=== PATIENT | female | born 1985 | race Caucasian/White ===

== ENCOUNTER 2020-11-03 13:03 | Outpatient (CLI) | payer OTHER ==
[2020-11-03 13:48] VITALS: BP 102/65
--- NOTE | 2020-11-03 13:48 | SLEEP CARE CONSULTATION ---
Information from patient questionnaire entered by Francisco Javier Flores. I have reviewed and concur with the information entered by Francisco Javier Flores. This document represents the service I personally performed and the decisions made by me, Karolyn Haney ARNP. History of Present Illness Service Date and Time: 11/03/2020 1303 Reason for Visit: New patient Chief Complaint: reports: Unrefreshed sleep, Snoring, Excessive daytime sleepiness, Fatigue, Frequent awakenings at night. denies: Insomnia, Observed pauses in breathing Date of Onset: Many years Usual bedtime: 0810-9865 Time it takes to fall asleep: A few minutes Snores at night: Yes Observed to quit breathing while asleep: No Number of times waking at night: 3-5 that I know of Reasons for waking at night: reports: Snoring, Bathroom, Other (To turn over, dreams). denies: Choking, Gasping for air Toss, Turn, or Twitch while sleeping: Yes (sometimes) Recalls having dreams: Yes Usually gets out of bed at: 3129-3982 Feels refreshed in the morning: No Morning headache: No Sleepy or fatigued during the day: Yes Ever fallen asleep while driving: Yes ([place] years ago) Takes day naps: No (rarely) Prior sleep studies: No Additional HPI information: I had the pleasure of seeing ASTON KIM today regarding the possibility of her having a sleep disorder. Her current complaints are snoring, unrefreshed sleep, frequent night, excessive daytime sleepiness, awakenings at night and fatigue. She was referred by her PCP after she discussed with them her issue of no being able to breathe through her nose and feeling chronic fatigued. She states she frequently wakes up through the night and does not wake up feeling rested. Her parents and siblings snore but no one has been evaluated/diagnosed with sleep apnea. - Parasomnia Symptoms Ever been unable to move upon waking from sleep: No Walks in sleep: No Talks in sleep: Yes (once) Ever acted out dreams in sleep: No Ever felt weak in the knees when startled or emotional: Yes Bothered by creepy, crawly, restless sensations in legs: Yes (not frequent, when in bed) Problems with memory or concentration: Yes Subjective Initial [place] Sleepiness Scale score: 12 (in 2019) Past Medical History Past Medical History: reports: Other ("Seasonal allergies"). 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 Patient is Single and lives in [place]. Have you smoked in the past 12 months: No Alcohol use: No Alcohol amount and frequency: Previously - socially Caffeine use: Yes Caffeine amount and frequency: 1-2 cups a day Family History Family history of sleep disordered breathing: Yes (Brother, both parents) Family Hx Sleep Apnea: Mother: Snoring, Father: Snoring, Sibling: Snoring Allergies and Home Medications Drug allergies reviewed: Yes (NKDA) Home medication list reviewed: Yes Allergy and home medication list: Flonase Cetirizine MVT hydroxycut drink Review of Systems Weight gain over past 5 years: 30 - fluctuates Cardiovascular: denies: high blood pressure Respiratory: denies: shortness of breath Gastrointestinal: denies: heartburn, difficulty swallowing Neurological: denies: headaches, head trauma Psychiatric: denies: anxiety, depression Ear/Nose/Throat: reports: nasal congestion, sinus problems (constant runny nose), wisdom teeth removed. denies: nose bleeds, dry mouth/throat, tonsillectomy Endocrine: reports: sluggishness (tired) Musculoskeletal: reports: back pain Immunologic: reports: sneezing (runny nose), itching, allergies to food or environment (grass, pollen, animal dander) Physical Exam Blood Pressure: 102/65 Cuff size: wrist Heart Rate: 74 O2 Saturation: 99 Height: 5 ft 10 in Weight: 189 lb Body Mass Index: 27.1 BMI Classification: Overweight Neck circumference: 14.1 (inches) Nostrils: patent to airflow Turbinates: swollen Mouth and throat: normal Hard palate: arched Uvula visualization: 100% Mallampati Class I Tongue: normal in size Tonsils: 2+ Chin and jaw: normal size and position Neck: normal w/o lymphadenopathy or thyromegaly Heart: regular rate and rhythm Lungs: clear bilaterally Impression and Plan 1. Suspected Obstructive Sleep Apnea-Hypopnea Syndrome, as suggested by a history of loud and irregular snoring, frequent awakening during the night, unrefreshed sleep, cognitive impairment, and excessive daytime sleepiness. I reviewed with patient that a narrow oropharynx and obesity are common predisposing factors for obstructive sleep apnea-hypopnea syndrome. I recommend proceeding to polysomnography to confirm the diagnosis and to assess severity. If the patient has significant sleep disordered breathing, a manual CPAP titration study will also be performed to find the optimal treatment pressure. I informed the patient of what the sleep studies involve and after some discussion, obtained agreement to proceed. The pathophysiology of obstructive sleep apnea-hypopnea syndrome was discussed with the patient and health risks of cardiovascular and cerebrovascular disease if not treated. AAS brochure for obstructive sleep apnea-hypopnea syndrome given and reviewed. Risks of drowsy driving discussed in detail and patient advised to avoid long distance driving and to kiln puller at the first sign of drowsiness. Patient agreed to plan. * Schedule polysomnography +- manual CPAP titration study. * Avoid long distance driving or driving when feeling sleepy. * Avoid sedative and muscle relaxant around bedtime. * Attempt to lose weight. * Review instructions provided by trained office staff on how to prepare for the sleep study. * Return for follow-up after sleep study completed. Counseling Topics: Weight loss health impact Visit Type: In Office Time Spent with Patient (minutes): 30 Provider Statement: I spent 100% of the Face to Face Visit with the patient with greater than 50% spent counseling the patient and coordination of care.
== END 2020-11-03 13:04 | disposition home or self-care (01) ==
LOC: SC 13:03
PROVIDERS: ATTEND Nurse Practitioner Family
DX: R06.83 Snoring (principal); G47.8 Other sleep disorders; R41.89 Other symptoms and signs involving cognitive functions and awareness; G47.10 Hypersomnia, unspecified; E66.3 Overweight; Z68.27 Body mass index [BMI] 27.0-27.9, adult
CPT/HCPCS: 99203; 99212

== ENCOUNTER 2020-12-15 07:51 | Outpatient (CLI) | payer OTHER | END 2020-12-15 07:52 | disposition home or self-care (01) | LOC: SC 07:51 | PROVIDERS: ATTEND Nurse Practitioner Family | DX: R06.83 Snoring (principal); G47.10 Hypersomnia, unspecified; G47.8 Other sleep disorders | CPT/HCPCS: 95806 ==

== ENCOUNTER 2020-12-22 13:57 | Outpatient (CLI) | payer OTHER ==
--- NOTE | 2020-12-22 13:52 | SLEEP CARE CONSULTATION ---
Information from patient questionnaire entered by Aditi Carrion. I have reviewed and concur with the information entered by Aditi Carrion. This document represents the service I personally performed and the decisions made by , Karolyn Haney ARNP. History of Present Illness Service Date and Time: 12/22/2020 1340 Initial [place] Sleepiness Scale score: 12 (in 2019) Additional HPI information: JEANETTE KIM returns via Telehealth visit for follow up and results of the recently performed home sleep study. The patient was informed of the following findings: patient had no significant sleep disordered breathing with an average AHI of 1.1 and a giovany oxygen saturation of 89%. I explained the pathophysiology behind obstructive sleep apnea. Patient does not have sleep apnea and was advised how weight gain could increase the risk of developing sleep apnea in the future. Patient has moderate snoring. Snoring can be reduced by weight loss. Weight loss is best achieved with diet consult. Patient instructed to contact PCP for referral. Snoring can also be treated with an oral appliance from a dentist. Advised to check insurance coverage. In addition, an ENT evaluation can be do to see if other treatment is indicated. Patient counseled not drink alcohol less than 4 hours before bedtime as it can increase snoring and apnea. Patient was cautioned about risks of drowsy driving until sleepiness symptoms resolve. Sleep Study - Results Type of Sleep Study: Home sleep study Prior sleep studies: No Polysomnography/Home Sleep Study results: Physician Impression: The quality of the study is good. The length of the study is adequate (> 240 minutes). Please also see the tabulated and graphic data. 1. No significant sleep-disordered breathing, with an AHI of 1.1/hr and giovany SaO2 of 89%. During the study, the patient had 8 apneas (8 obstructive, 0 central, 0 mixed) and 1 hypopnea. The longest episode lasted 23.5 seconds. The respiratory events occurred more frequently during supine sleep (supine AHI was 1.9 and non-supine, 0.69). 2. Hypoxemia (ICD-10 R09.02), minimal, with the lowest oxygen saturation of 89 % and 0.2 minutes with SaO2 under 90%. Baseline oxygen saturation was normal (Average oxygen saturation was 96%). Allergies and Home Medications Home medication list reviewed: Yes (no changes) Review of Systems Review of systems same as previous: Yes (no changes) Physical Exam Vital signs obtained and entered by: Telehealth visit to reduce exposure during covid pandemic Height: 5 ft 10 in Impression and Plan Snoring but no significant sleep disordered breathing. Patient advised that often weight loss will reduce snoring as well as apnea risk. An oral appliance can also be used for snoring. This would require a dental consultation. Patient cautioned not to use other online appliances as can cause bite issues. A list of accredited dentists in area and one local dentist who makes oral appliances given. Patient is advised to check if insurance will cover. An ENT consult can also be helpful to determine if any other treatment is an option. 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 She was advised that she would have to get another referral when she comes back from deployment and we can evaluate if she needs an in lab PSG at that time. She voiced understanding. * Patient to follow up when she returns from deployment for possible in lab study. * Avoid alcohol consumption near bedtime * The patient is cautioned about driving until sleepiness is completely resolved. * Return as needed. Visit Type: Telehealth Video Video Type: VSee Patient Location: Home Location of Provider: Office Patient agrees and consents to this telehealth visit type: Yes Patient agrees to have their insurance billed: Yes Time Spent with Patient (minutes): 15 Provider Statement: I spent 100% of the Telehealth Video Call with the patient with greater than 50% spent counseling the patient and coordination of care.
== END 2020-12-22 13:58 | disposition home or self-care (01) ==
LOC: SC 13:57
PROVIDERS: ATTEND Nurse Practitioner Family
DX: R06.83 Snoring (principal)

== ENCOUNTER 2024-02-18 10:01 | Outpatient (CLI) | payer OTHER ==
--- NOTE | 2024-02-18 12:06 | MRI Report ---
PROCEDURE: Hip RT WO INDICATIONS: R HIP PAIN TECHNIQUE: Noncontrast coronal T1 spin echo and STIR through the bony pelvis. Coronal and axial T2 fast spin ec ho with fat saturation, sagittal T1 spin echo, and oblique axial T2 fast spin echo with fat saturatio n through the hip. COMPARISON: None. FINDINGS: Image quality: Excellent. Bones and joints: Mild to moderate bilateral hip joint osteoarthritic changes are seen with superior joint space narrowing, subchondral sclerosis and small marginal osteophyte formation slightly worse o n the right side. Nonspecific subcortical cystic changes are noted in anterior right acetabular roof is seen. No acute fracture or dislocation. No avascular necrosis of the femoral heads. The visualize d lower lumbar spine appears normally aligned. Tendons: Distal right gluteus medius and minimus tendinosis at their insertions on greater trochanter is seen. The iliopsoas tendon appears intact, without adjacent bursal fluid collections. The origin of the hamstring tendon is intact at the ischial tuberosity. Labrum and cartilage: Mildly thinning of articulating cartilage over right femoral head is seen. Fray ing of superior anterior labrum with T2 hyperintense signal at 1 to 2:00 position is seen suggestive of superior anterior labral tear. The alpha angle of the femur is within normal limits at less than 5 5 degrees. Soft tissues: Visualized muscles demonstrate normal bulk and internal signal. The proximal sciatic neurovascular bundle appears normal adjacent to the hamstring tendons. No free pelvic fluid. Bladde r wall thickness is normal. Genitourinary structures and bowel loops appear normal where visualized. IMPRESSION: 1. Mild to moderate lateral hip joint osteoarthritis slightly worse on the right side. No fracture or dislocation. No evidence of avascular necrosis. Subcortical cystic changes involving anterior right acetabular roof. 2. Right distal gluteus medius and minimus tendinosis. 3. Suggestion of subtle superior anterior right hip labral tear at 1 to 2:00 position. Reviewed by: Preston Mayorga MD on 02/18/2024 12:04 PM PDT Approved by: Preston Mayorga MD on 02/18/2024 12:04 PM PDT Station ID: [id number]
== END 2024-02-18 10:02 | disposition home or self-care (01) ==
LOC: DI 10:01
PROVIDERS: ATTEND Nurse Practitioner Family
DX: M16.0 Bilateral primary osteoarthritis of hip (principal); M67.951 Unspecified disorder of synovium and tendon, right thigh

== ENCOUNTER 2024-04-15 08:40 | Outpatient (CLI) | payer OTHER ==
--- NOTE | 2024-04-15 09:06 | Sleep Patient Instructions ---
Sleep Center Visit Summary - Patient Visit Information Reason for Visit: Initial consult for evaluation of sleep disordered breathing and other sleep issues. - Patient Instructions Additional Instructions: You will be completing a sleep study, either an in-lab polysomnography (PSG) or home sleep study (HST). You will follow-up in the sleep care office after the sleep study is completed to hear the results and talk about therapy, if needed. You will be called by our office staff to schedule this appointment, but you may contact us with any questions. - Clinic Information Contact: [facility] [address] [place] [id number] [email or web address] T: [phone]
--- NOTE | 2024-04-15 09:11 | SLEEP CARE CONSULTATION ---
Information from patient questionnaire entered by Lisa Castillo. I have reviewed and concur with the information entered by Lisa Castillo. This document represents the service I personally performed and the decisions made by me, Karolyn Haney ARNP. History of Present Illness Service Date and Time: 04/15/2024 0840 Reason for Visit: New patient Chief Complaint: reports: Unrefreshed sleep, Snoring, Excessive daytime sleepiness, Fatigue Date of Onset: 5YRS Usual bedtime: 4127-6655 Time it takes to fall asleep: LESS THAN 10MINS Snores at night: Yes Observed to quit breathing while asleep: No Sleeps alone due to snoring: No Number of times waking at night: UNSURE Reasons for waking at night: reports: Snoring, Bathroom, Other (UNKNOWN, NOISE) Toss, Turn, or Twitch while sleeping: Yes Recalls having dreams: Yes Usually gets out of bed at: 4171-4979 Feels refreshed in the morning: No Morning headache: No Sleepy or fatigued during the day: Yes Ever fallen asleep while driving: Yes Takes day naps: No Dreams during day naps: Yes Prior sleep studies: Yes Type of Sleep Study: Home sleep study Additional HPI information: I had the pleasure of seeing ASTON GALAN today regarding the possibility of her having a sleep disorder. Her current complaints are excessive daytime sleepiness, snoring, fatigue and unrefreshed sleep. He says her snoring is worsening. She is fatigued during the day and would like to feel rested in the mornings. She says she has gained about 30 pounds in last 3 years. The patient tells me that she normally goes to bed around 09-10:30 pm, and it takes her approximately 10 minutes to fall asleep. She has been told that she snores loudly and irregularly at night. She has not been observed to stop breathing in her sleep. Her bed partner can still sleep in the same bed. She can recall waking up on the average of 1-2 times during the night. Most of the time she wakes up because of bathroom, noise and unknown reasons. She has occasionally awakened for her own snoring. There is a lot of tossing and turning in her sleep. Generally she can recall having dreams. She usually wakes up at [id number] and does not feel refreshed. She usually does not have a morning headache. During the day she complains of feeling sleepy and fatigued. She has never fallen asleep while driving nor has any accident due to sleepiness. She usually does not take naps during the day. If she naps, upon falling asleep during the day she denies having vivid dreams. She reports having impaired concentration during the day. There is no somniloquy (sleep talking) or somnambulism (sleep walking). - Parasomnia Symptoms Ever been unable to move upon waking from sleep: No Walks in sleep: No Talks in sleep: No Ever acted out dreams in sleep: No Ever felt weak in the knees when startled or emotional: Yes Bothered by creepy, crawly, restless sensations in legs: Yes Problems with memory or concentration: Yes (both) Subjective Initial [place] Sleepiness Scale score: 12 (in 2019) Current [place] Sleepiness Scale score: 15 (04/14/24) Past Medical History Past Medical History: reports: Arthritis, Anxiety, Depression, Mood disorder (PTSD), Other (acid reflux recently) Social History The patient's occupation is a AM. Patient is Single and lives in . Have you smoked in the past 12 months: No Alcohol use: No Caffeine use: Yes Caffeine amount and frequency: 1-2 COFFEE MOST Family History Family history of sleep disordered breathing: Yes Family Hx Sleep Apnea: Mother: Snoring, Father: Snoring, Sleep apnea - Treated, Sibling: Snoring, Grandparent: Snoring Allergies and Home Medications Known drug allergies: No Drug allergies reviewed: Yes Home medication list reviewed: Yes (as listed) Allergy and home medication list: Allergies No Known Drug Allergies Allergy (Verified 04/13/24 08:04) Home Medications Medication Instructions Recorded Confirmed Last Taken Type Naproxen [Naprosyn] 250 mg PO Q8H PRN 10/25/22 04/15/24 Unknown History Sertraline [Zoloft] 50 mg PO DAILY 10/25/22 04/15/24 Unknown History Multivitamin See Rx Instructions .ROUTE .COMPLEX 04/15/24 04/15/24 Unknown History Bronx-3 Fatty Acids [Bronx-3] See Rx Instructions .ROUTE .COMPLEX 04/15/24 04/15/24 Unknown History Muscle relaxer, unsure of name, takes as needed Review of Systems Weight gain over past 5 years: 45 Cardiovascular: denies: high blood pressure Respiratory: reports: shortness of breath Neurological: denies: headaches Psychiatric: reports: anxiety, depression, mood disorder Ear/Nose/Throat: reports: nasal congestion, wisdom teeth removed. denies: tonsillectomy Endocrine: reports: sluggishness, too hot or cold Musculoskeletal: reports: joint pain, back pain Immunologic: reports: sneezing, itching, allergies to food or environment Physical Exam Vital signs obtained and entered by: LISA Randle MA Blood Pressure: 116/77 (LEFT ARM) Cuff size: long Heart Rate: 81 O2 Saturation: 98 Height: 5 ft 9 in Weight: 222 lb 12.8 oz (IN UNIFORM) Body Mass Index: 32.8 BMI Classification: Obese Neck circumference: 15.25 Mouth and throat: narrow oropharynx Soft palate: long Hard palate: normal Uvula visualization: 25% Mallampati Class III Tongue: normal in size Tonsils: small Neck: normal w/o lymphadenopathy or thyromegaly Heart: regular rate and rhythm Lungs: clear bilaterally Impression and Plan 1. Suspected Obstructive Sleep Apnea-Hypopnea Syndrome, as suggested by a history of loud and irregular snoring, unrefreshed sleep, cognitive impairment, and excessive daytime sleepiness. Narrow oropharynx and obesity are common predisposing factors for obstructive sleep apnea-hypopnea syndrome. I recommend proceeding to polysomnography to confirm the diagnosis and to assess severity. If the patient has significant sleep disordered breathing, a manual CPAP titration study will also be performed to find the optimal treatment pressure. I informed the patient of what the sleep studies involve and after some discussion, obtained agreement to proceed. The pathophysiology of obstructive sleep apnea-hypopnea syndrome was discussed with the patient and health risks of cardiovascular and cerebrovascular disease if not treated. Risks of drowsy driving discussed in detail and patient advised to avoid long distance driving and to extractor puller at the first sign of drowsiness. Patient agreed to plan. * Schedule polysomnography. * Avoid long distance driving or driving when feeling sleepy. * Avoid alcohol, sedative and muscle relaxant around bedtime. * Attempt to lose weight. * Review instructions provided by trained office staff on how to prepare for the sleep study. * Return for follow-up after sleep study completed. Counseling Topics: Weight loss health impact Plan: PSG/HST and followup Visit Type: In Office Time Spent with Patient (minutes): 30 Provider Statement: I spent 100% of the Face to Face Visit with the patient with greater than 50% spent counseling the patient and coordination of care.
[2024-04-15 09:21] VITALS: BP 116/77; O2SAT 98
== END 2024-04-15 08:41 | disposition home or self-care (01) ==
LOC: SC 08:40
PROVIDERS: ATTEND Nurse Practitioner Family
DX: R06.83 Snoring (principal); G47.8 Other sleep disorders; G47.10 Hypersomnia, unspecified; R53.83 Other fatigue; E66.9 Obesity, unspecified; Z68.32 Body mass index [BMI] 32.0-32.9, adult; F32.A Depression, unspecified
CPT/HCPCS: 99203; 99212

== ENCOUNTER 2024-05-15 19:42 | Outpatient (CLI) | payer OTHER | END 2024-05-15 19:43 | disposition home or self-care (01) | LOC: SC 19:42 | PROVIDERS: ATTEND Nurse Practitioner Family | DX: G47.61 Periodic limb movement disorder (principal) | CPT/HCPCS: 95810 ==

== ENCOUNTER 2024-05-26 15:25 | Outpatient (CLI) | payer OTHER ==
--- NOTE | 2024-05-26 15:44 | Sleep Patient Instructions ---
Sleep Center Visit Summary - Patient Visit Information Reason for Visit: Sleep study follow-up - Patient Instructions Instructions Attached: Sleep Apnea Snoring Surg Additional Instructions: Your sleep study today was negative for significant sleep disordered breathing. You did, however, had severe periodic leg movements of sleep that interrupted the quality of your sleep. You should seek further evaluation from your primary provider. You were found to have episodes of snoring. There are different ways to control snoring including weight loss, oral devices made by a dentist or surgical options through ENT specialist. You should not use oral devices that do not fit properly because they can affect your bite. You should also check insurance coverage of oral devices for snoring because they may not be cover well. You may obtain a referral to an ENT specialist through your primary provider. Follow-up as needed. - Clinic Information Contact: [facility] [address] [place] [address] [email or web address] T: [phone]
--- NOTE | 2024-05-26 15:47 | SLEEP CARE CONSULTATION ---
Information from patient questionnaire entered by Kavita Castillo. I have reviewed and concur with the information entered by Kavita Castillo. This document represents the service I personally performed and the decisions made by , Karolyn Haney ARNP. History of Present Illness Service Date and Time: 05/26/2024 152 Initial Maxie Sleepiness Scale score: 12 (in 2019) Current Maxie Sleepiness Scale score: 13 (05/26/24) Additional HPI information: ASTON GALAN returns for follow up and results of the recently performed polysomnography. The patient was informed of the following findings: No significant sleep disordered breathing with an average AHI of 1.5 and giovany oxygen saturation of 91%. She had severe periodic leg movements of sleep contributing to sleep fragmentation. I explained the pathophysiology behind obstructive sleep apnea. Patient does not have sleep apnea and was advised how weight gain could increase the risk of developing sleep apnea in the future. I strongly encouraged the patient to lose weight. Patient has light and infrequent snoring. Snoring can be reduced by weight loss. Weight loss is best achieved with diet consult. Patient instructed to contact PCP for referral. Snoring can also be treated with an oral appliance from a dentist. Advised to check insurance coverage. In addition, an ENT evaluation can be do to see if other treatment is indicated. Patient counseled not drink alcohol less than 4 hours before bedtime as it can increase snoring and apnea. Patient was cautioned about risks of drowsy driving until sleepiness symptoms resolve. Patient denies drowsy driving. Sleep Study - Results Type of Sleep Study: Polysomnography (COMPLETED 05/15/24) Prior sleep studies: Yes Polysomnography/Home Sleep Study results: IMPRESSION: The quality of the study is good. The patient had normal sleep efficiency. The sleep architecture was abnormal for sleep fragmentation and reduced amount of time spent in slow wave sleep (N3). Respiratory monitoring showed no significant sleep disordered breathing (AHI = 1.5) hypoxia (giovany oxygen saturation of 91%). The patient slept adequately in supine position (supine AHI = 2.5; non-supine = 0.95). Snore was infrequent and light in intensity. There was severe periodic leg movement of sleep contributing to the sleep fragmentation. Cardiac rhythm was normal sinus rhythm without significant arrhythmia. No abnormal behavior (parasomnia) observed during the night. Allergies and Home Medications Known drug allergies: No Drug allergies reviewed: Yes Home medication list reviewed: Yes (no changes) Allergy and home medication list: Allergies No Known Drug Allergies Allergy (Verified 05/26/24 08:12) Review of Systems Review of systems same as previous: Yes (NO CHANGE) Physical Exam Vital signs obtained and entered by: KAVITA Randle MA Blood Pressure: 115/71 (LEFT ARM) Cuff size: regular Heart Rate: 66 O2 Saturation: 98 Height: 5 ft 9 in Weight: 215 lb 12.8 oz Body Mass Index: 31.8 BMI Classification: Obese Impression and Plan 1. Periodic limb movement, severe, that did contribute to the fragmentation of the patients sleep. Periodic limb movement of sleep (PLMS) is characterized by episodes of repetitive limb movements that occur during sleep and usually involve the lower limbs. The etiology is unknown. Patient was advised that further evaluation may be indicated for clinical correlation with her PCP, she voiced understanding. 2. Snoring but no significant sleep disordered breathing. Patient advised that often weight loss will reduce snoring as well as apnea risk. An oral appliance can also be used for snoring. This would require a dental consultation. Patient cautioned not to use other online appliances as can cause bite issues. Patient is advised to check if insurance will cover. An ENT consult can also be helpful to determine if any other treatment is an option. 3. Obesity, unspecified. Currently patients BMI is 31.8. Obesity increases the risk of apnea, CPAP pressure requirements and overall health risks especially cardiovascular and diabetes. Thus patient is advised to lose weight. * Follow up with PCP for further evaluation of severe PLMs * Attempt to lose weight * Avoid alcohol consumption near bedtime * Return as needed for follow up. Counseling Topics: Weight loss health impact Follow up with Sleep Care in: as needed Follow up with: PCP Follow up recommended for: Other (severe PLMs) Visit Type: In Office Time Spent with Patient (minutes): 14 Provider Statement: I spent 100% of the Face to Face Visit with the patient with greater than 50% spent counseling the patient and coordination of care.
[2024-05-26 16:02] VITALS: BP 115/71; O2SAT 98
== END 2024-05-26 15:26 | disposition home or self-care (01) ==
LOC: SC 15:25
PROVIDERS: ATTEND Nurse Practitioner Family
DX: R06.83 Snoring (principal); G47.61 Periodic limb movement disorder; E66.8 Other obesity; Z68.31 Body mass index [BMI] 31.0-31.9, adult
CPT/HCPCS: 99212